=== PATIENT | female | born 1960 | race Caucasian/White ===

== ENCOUNTER → 2019-07-25 | Outpatient (CLI) | payer MEDICAID, SELFPAY ==
[2019-07-25 17:40] LABS: Absolute Lymphocyte Count 2.28 X10^3/uL (0.83-4.51); Absolute Neutrophil Count 2.5 X10^3/uL (2.0-7.7); Basophil# 0.06 X10^3/uL; Basophil% 1.1 % (0-1); Eosinophil# 0.07 X10^3/uL; Eosinophils% 1.3 % (0-5); Hematocrit 42.4 % (37-47); Hemoglobin 13.3 g/dL (12.0-15.0); Lymphocyte # 2.28 X10^3/ul (4.0); Lymphocyte % 43.3 % (19-41); Mean Corp Hgb Conc 31.4 g/dL (32-36); Mean Corpuscular Hgb 28.6 pg (27.0-32.0); Mean Corpuscular Volume 91.2 fL (81-99); Mean Platelet Vol. 10.6 fl (6.2-12.0); Monocyte# 0.39 X10^3/uL; Monocyte% 7.4 % (0-10); NRBC Flagged by Analyzer 0 % (0-5); Neutrophil # 2.46 X10^3/uL (2.7-7.7); Neutrophil % 46.7 % (47-70); Platelet Count 348 K/mm3 (150-450); RBC Distribution Width CV 13.2 % (11.6-14.6); RBC Distribution Width SD 44.6 fl (35.1-43.9); Red Blood Count 4.65 M/mm3 (4.2-5.4); White Blood Count 5.3 K/mm3 (4.4-11.0)
[2019-07-25 17:53] LABS: ALB/GLOB Ratio 0.9 RATIO (0.9-2.4); AST(SGOT) 33 U/L (15-37); Alanine Aminotransfer ALT/SGPT 50 U/L (13-56); Albumin, Serum 3.8 g/dL (3.2-5.0); Alkaline Phosphatase 96 U/L (45-117); Anion Gap 8 (5-15); BUN 8 mg/dL (7-18); Calcium,Total 9.5 mg/dL (8.5-10.1); Chloride 104 mmol/L (98-107); Creatinine, Serum 0.61 mg/dL (0.55-1.02); EST Glomerular Filtration Rate 106 mL/min (>60); Est Glom Filt Rate - Afr Amer 129 mL/min (>60); Globulin 4.3 g/dL (2.2-4.2); Glucose 73 mg/dL (74-106); Potassium 3.4 mmol/L (3.5-5.1); Protein, Total 8.1 g/dL (6.4-8.2); Sodium Level 141 mmol/L (136-145)
== END | disposition home or self-care (01) ==
PROVIDERS: Referring Provider Family Medicine; Visit Provider Family Medicine
DX: Z01.818 Encounter for other preprocedural examination (principal)
CPT/HCPCS: 36415; 80053; 85025

== ENCOUNTER 2019-08-04 08:20 | Day surgery (SDC) | payer MEDICAID, SELFPAY ==
[2019-08-04 08:46] VITALS: BP 120/77; PULSE 71; RESP 14; TEMP 36.7; O2SAT 96; BMI 20.5
[2019-08-04] MEDS: Lactated Ringers 1,000 ML 100 ML IV ×2 (09:05→12:29)
--- NOTE | 2019-08-04 09:30 | BON_PTH ---
PATIENT: MARCO ANTONIO ZUNIGA LOC: [facility] [place] U#:[id number] AGE/SX: 59/F ROOM: RE08/04/[address]: Dr. Edmundo Shah DPM : 1960 BED: DIS: 08/04/2019 SPEC #: [id number] RECD: 08/04/19 13:43 STATUS: DONALD REQ #: [id number] NOHEMY: 08/04/19 09:[address]: Edmundo Shah DEPT: SURGICAL PATHOLOGY RECD BY: Elpidio Ray ENTERED: 08/04/19 14:12 SP TYPE: Bone OTHR DR: Out of Town Doctor Tissues: A - Bone of ankle, NOS B - Tendon, NOS Procedures: Decalcification bone/plaque Surgery Specimen Level III Surgery Specimen Level IV HEADER OPERATION: Debridement / removal of ankle impingement PRE-OP DIAGNOSIS: Ankle impingement; osteoarthritis and posttraumatic arthritis of ankle; posterior tibial tendonitis / tear tarsal tunnel TISSUE SUBMITTED: A - Right medial ankle, B - Right debrided posterior tibial tendon MICROSCOPIC DIAGNOSIS A. Right medial ankle soft tissue, excision: Skin and soft tissue with reparative and reactive change. Bone with reactive change. No evidence of osteomyelitis. B. Right posterior tibial tendon: Fragments of tendon with focal degenerative and reparative change. AM:soraida 08/09/19 MICROSCOPIC DESCRIPTION Slides are reviewed. GROSS DESCRIPTION A - Received in fixative is one container labeled with the patient's name and designated right medial ankle. The specimen consists of multiple pieces of soft tissue and bone that in aggregate measure 3 x 2.5 x 0.3 cm. The entire specimen is submitted in one cassette after decalcification. B - Received in fixative is one container labeled with the patient's name and designated right debrided posterior tibial tendon. The specimen consists of two pieces of aguilar, indurated tissue measuring in aggregate 3 x 1 x 0.2 cm. The entire specimen is submitted in one cassette. / SJ:soraida 08/04/19 TC:5 CPT: 19382, 36221, 45078
--- NOTE | 2019-08-04 09:50 | RAD_ITS ---
STUDY: X-RAY - RIGHT ANKLE PROCEDURE: FLUOROSCOPY ASSISTANCE DATE OF EXAMINATION: August 04, 2019. INDICATION: Female, 59 years old. 59-year-old serial. Ankle impingement. Debridement. RADIATION DOSAGE (If Supplied By Facility): Please see attached dosage report. IMPRESSION/FINDINGS: Ankle arthroplasty grossly intact/well aligned Distal tibial screws grossly intact/well aligned Fluoroscopic images submitted to PACS for procedural/postsurgical documentation Please see procedural/surgical note Radiologist not present at the time of examination Electronically Signed: Aj So DO at 11:52 EDT Tel , Service support , RAD/Ankle 2 Views
[2019-08-04] MEDS: Cefazolin 2 GM in 0.9% Normal Saline 100 ML IV (10:00)
[2019-08-04] MEDS: Bupivacaine Mpf 0.5% 30 ML VIAL (11:42)
--- NOTE | 2019-08-04 11:51 | RAD_ITS ---
STUDY: X-RAY - RIGHT ANKLE REASON FOR EXAM: Female, 59 years old. Postoperative evaluation. TECHNIQUE: 3 view(s) of the ankle. COMPARISON: None. FINDINGS: Distal syndesmotic screws intact/well aligned. Calcification/bone graft at the syndesmotic region. Status post ankle arthroplasty. Surgical hardware appears intact/well aligned. Mild talonavicular joint arthrosis. Moderate subtalar joint arthrosis. Bone remodeling at the distal tibia and fibula. Achilles tendon enthesophyte. Osteopenia. No acute fracture line. No acute dislocation. No acute cortical destruction. Postoperative soft tissues. RAD/Ankle min 3 Views IMPRESSION: No acute postoperative complications Ankle arthroplasty with hardware intact/well aligned Syndesmotic fixation with hardware intact/well aligned Degenerative features, as above Electronically Signed: Aj So DO at 13:18 EDT Tel , Service support ,
--- NOTE | 2019-08-04 11:52 | DCINST_ITS ---
Discharge Diet: Light diet - advance as tolerated Discharge Activity: May Not Drive, Use Crutches Weight Bearing Status: No weight bearing - No weightbearingright foot Keep extremity elevated above heart level: Right Leg - Keep right foot elevated with pillows for at least 50 minutes of every hour Call your doctor if your incision/area has: Continuous Slow Oozing, Sudden Increased Bleeding, Foul Smelling Discharge Call your doctor if you observe: Fever of 101 or Higher, Fainting spells, Chest pain, Increased palpitations (irregular heartbeat), Calf discomfort, Uncontrolled pain Cleanse incision/area with: Do not get Incision Wet, Keep Dressing Clean & Dry Allergies/Adverse Reactions: Allergies meperidine [From Demerol] Adverse Reaction (Verified 07/28/19 14:26) Nausea Medications to take at Discharge Oxycodone HCl/Acetaminophen [Percocet 5/325] 1 - 2 tab PO Q6H PRN PRN 3 Days #30 tab 08/04/19 Rivaroxaban [Xarelto] 10 mg PO DAILY #30 tab 08/04/19 The following prescriptions were given: Oxycodone HCl/Acetaminophen [Percocet 5/325] 1 - 2 tab PO Q6H PRN PRN 3 Days #30 tab PRN Reason: Pain Prescription Printed Rivaroxaban [Xarelto] 10 mg PO DAILY #30 tab Prescription Printed Primary Care Physician: MARIANO POWERS [Other] Test Results: Test results from this visit will be discussed in further detail at your follow- up appointment, if applicable. Please Follow Up With: Edmundo Shah DPM When: within 1 week, sooner if needed
--- NOTE | 2019-08-04 11:53 | OP.PCM_ITS ---
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 Joss Jiménez Type of Anesthesia:: General, Local Specimen's removed: Debrided tissue from right ankle sent to pathology. Debrided right posterior tibial tendon sent to pathology Estimated Blood Loss (mL): 1mL Description of Procedure: Indications: This is a 59 year old female with chronic right medial ankle pain at level of the medial malleolus, and posterior tibial tendon and tibial nerve. This persists despite nonsurgical care. She is very active and has worsening pain. She has history of ankle fracture, and also total ankle joint replacement. Due to on going pain we discussed further intervention, and patient elected to proceed forward with the procedures. All of the possible benefits vs risks, goals, expectations and alternative options were discussed and reviewed with the patient. The patient expressed understanding and agreement. The patient freely signed the consent form. No guarantees were given nor implied. Operative Procedure: The patient was brought back into the operating room and was placed on the operating room table in the supine position. The patient was carefully secured to the operating room with a safety belt around her waist. A timeout was performed and the patient was properly identified and the surgical plan was confirmed. A well padded thigh pneumatic tourniquet was applied. The patient received 2 grams of IV Cefazolin for antibiotic prophylaxis. The patient received general anesthesia per the anesthesia team. The right foot and ankle were scrubbed, prepped and draped in the usual aseptic fashion. Further attention was directed to the right ankle. A total of 20mL of a 50/50 mixture of 1% Lidocaine plain and 0.5% Bupivacaine plain was given as a local block around the medial ankle surgical site. The right was elevated for 3 minutes and the right thigh pneumatic tourniquet was inflated to 350mmHg. Medial ankle gutter debridement: A linea longitudinal skin incision was made to the anterior ankle at site of previous incision. Careful dissection was completed down to the extensor retinaculum which was incised. Dissection was completed down to the anterior ankle capsule and this was incised, and reflected from the anterior medial ankle. There was noted to be synovitis to the ankle which was drained and flushed out. There was no purulence, no abscess, no necrosis or evidence of infection. The medial ankle gutter was visualized as well the the ankle implant. The implant was intact and functioning properly. There was noted to be significant medial gutter impingement with significant scar tissue, adhesions, spurring, and degenerative changes present, with jamming and grinding noted when ankle was put through range of motion. The medial ankle medial ankle gutter was debrided using a bone cutting rongeur removing all of the scar tissue, adhesions, spurrring and degenerative tissue present. This debrided tissue was sent to pathology. At this time the ankle was put through range of motion and griding and jamming resolved with good smooth range of motion noted to the medial ankle gutter. Proper debridement was assessed visually as well as by putting ankle through range of motion (as already noted) along with intra operative fluoroscopy. Intraoperative flouroscopy confirmed proper debridement with good medial gutter space present at this time. The site was flushed out with copious amounts of normal saline solution. The ankle capsule and extensor retinaculum was reapproximated using 3-0 Vicryl. Posterior tibial tendon debridement/repair: A curvilinear skin incision was made along the medial ankle and hindfoot at level of the medial malleolus and posterior tibial tendon/tarsal tunnel. Careful dissection was completed down to the medial malleolusand posterior tibial tendon sheath. The posterior tibial tendon sheath was incised, there was tenosynovitis present but no purulence or necrosis. The posterior tibial tendon was visualized. It was noted to have a longitudinal tear. There was hypertrophy and mucoid degeneration of the tendon. There was a bone spur to the posterior medial malleolus which corresponded to the location of the tear. The bone spur was resected. There was some fibrofatty tissue and again mucoid degeneration noted to the tendon at this level as well. This nonviable unhealthy tissue was debrided and sent to pathology, this involved ~20% of the tendon, the rest of the tendon was healthy and viable. The tendon was repaired and tubularized using 2-0 Vicryl. The site was flushed with copious amounts of normal saline solution. The posterior tibial tendon sheath was reapproximated using 3-0 Vicryl. Tarsal Tunnel Release: Further attention was directed to the tarsal tunnel. An incision was made overlying the tarsal tunnel. Careful dissection was completed down to the tibial nerve, the flexor retinaculum was incised, the tibial nerve was visualized, along with its branches of the medial and lateral plantar nerves and medial calcaneal nerve, in which it was noted these branches occurred at the central to distal aspect of the tarsal tunnel. It was noted there were significant adhesions around the tibial nerve at the level of the tarsal tunnel, these were identified and carefully released. At the level of the central aspect of the tarsal tunnel the tibial nerve appeared yellow, the tibial nerve appeared to be inflamed. All adhesions were gently freed away from the tibial nerve and removed. The surgical site was flushed out with copious amounts of normal saline solution. The rest of the tissues at the surgical site appeared healthy and viable. The flexor retinaculum was not reapproximated together to help prevent further impingement/entrapment of the tibial nerve. The sites were flushed with copious amounts of normal saline solution. The remaining tissues were healthy and viable. The subcutaneous tissue was reapproximated using 3-0 Vicryl. The skin was reapproximated using 4-0 Monocryl. Cavilon was applied to the sutured skin edges and steristrips were applied across the sutured skin incisions. The pneumatic tourniquet was deflated (total time was: 77 minutes), and there was immediate return of normal warmth and p erfusion to the foot and ankle. An additional 10mL of 0.5% Bupivacaine plain was given as a local block around the medial ankle surgical site. A dressing was applied which consisted of Betadine soaked adaptic, 4x4 gauze, kerlix, solange and as well padded below the knee posterior splint. Intraoperative fluoroscopy was used as needed during the case, and images were saved. This confirmed proper medial gutter debridement. The patient was transported from the operating room to the recovery room with vital signs stable and in good condition. Post operative orders were placed. No weightbearing right foot, keep right foot elevate, keep dressing clean, dry and intact. Patient was prescribed Percocet 5mg/320mg 1-2 tabs PO q 6 hours prn pain. Patient to follow up with me in 1 week, sooner if needed. Also of note right ankle xrays were obtained in the PACU and were reviewed, 3 views of the ankle - shows s/p debridement medial ankle gutter, no complications. Grafts/Implants Used: None - Complications None
[2019-08-04 11:56] VITALS: BP 120/77; BP 132/81; PULSE 93; RESP 16; TEMP 36.1; O2SAT 100
[2019-08-04 12:00] VITALS: BP 105/70; BP 120/77; PULSE 66; RESP 16; O2SAT 97
[2019-08-04 12:26] VITALS: BP 116/82; BP 120/77; PULSE 68; RESP 16; TEMP 36.1; O2SAT 97
[2019-08-04 13:21] VITALS: BP 120/73; BP 120/77; PULSE 74; RESP 16; TEMP 35.8; O2SAT 97
== END 2019-08-04 13:44 | disposition home or self-care (01) ==
LOC: SDC 08:23 → AC 08:25
PROVIDERS: Referring Provider Podiatrist; Visit Provider Podiatrist
PROC: (CPT 28899; principal; 2019-08-04 09:15)
DX: G57.51 Tarsal tunnel syndrome, right lower limb (principal); M12.571 Traumatic arthropathy, right ankle and foot; M25.871 Other specified joint disorders, right ankle and foot; Z85.038 Personal history of other malignant neoplasm of large intestine; Z90.49 Acquired absence of other specified parts of digestive tract
CPT/HCPCS: 01470; 11043; 11046 ×3; 28035; 28200; 73600; 73610; 76000; 88304; 88305; 88311; J7120